=== PATIENT | female | born 1975 | race Caucasian/White ===

== ENCOUNTER 2018-04-13 09:44 | Day surgery (SDC) | payer BC ==
[~2018-04-13 09:44] MED LIST: Buffered Lidocaine 0.9% SYRIN* 5 ML/SYR SYRINGE INTRADERM ONE; Dexamethasone IV* 4 MG/ML 1 ML (4 MG) IV SLOW PU ONE; Famotidine IV* 10 MG/ML 2 ML (20 mg) IV ONE
[2018-04-13] MEDS ORDERED: Famotidine IV* 10 MG/ML 2 ML (20 mg) ONE (09:57)
[2018-04-13] MEDS ORDERED: Dexamethasone IV* 4 MG/ML 1 ML (4 MG) ONE (09:57)
[2018-04-13] MEDS ORDERED: ceFAZolin 2 GM in NS PREMIX(*) 2 GM/100 ML BAG IVPB ONE (09:58)
[2018-04-13] MEDS ORDERED: Scopolamine 1.5 mg* PATCH ONE (11:04)
[2018-04-13] MEDS ORDERED: Midazolam* 1 MG/ML 2 ML VIAL (2 MG) ONE (11:11)
[2018-04-13] MEDS ORDERED: fentaNYL* 50 MCG/ML 2 ML VIAL (100 MCG VIAL) ONE ×4 (11:11→14:20)
[2018-04-13] MEDS ORDERED: Scopolamine 1.5 mg* PATCH TRANSDERM SCH (12:00)
[2018-04-13] MEDS ORDERED: ROPIVACAINE 5 MG/ML 30 ML BTL (0.5%) ONE (12:11)
[2018-04-13] MEDS ORDERED: Ondansetron INJ* 2 MG/ML VIAL ONE (12:33)
[2018-04-13] MEDS ORDERED: Lidocaine 2% PF * 5 ML VIAL ONE (12:33)
[2018-04-13] MEDS ORDERED: Propofol* 10 MG/ML 20 ML BTL IV PUSH ONE (12:33)
[2018-04-13] MEDS ORDERED: Ketorolac INJ* 30 MG/ML 1 ML VIAL ONE (12:33)
[2018-04-13] MEDS ORDERED: HYDROmorphone INJ1* 1 MG/ML SYRINGE IV PRN (13:06)
[2018-04-13] MEDS ORDERED: Naloxone* 0.4 MG/ML 1 ML VIAL IV PRN (13:06)
[2018-04-13] MEDS ORDERED: DiMENhydriNATE IV* 50 MG/ML VIAL IV PUSH PRN (13:06)
[2018-04-13] MEDS ORDERED: HYDROcodone/ACETAMIN 5-325 MG* 1 TAB ONE (14:20)
[2018-04-13] MEDS: fentaNYL* 50 MCG/ML 2 ML VIAL (100 MCG VIAL) IV PRN ×2 (14:25→14:42)
[2018-04-13 15:04] VITALS: BP 135/79
--- NOTE | 2018-04-14 01:16 | OP ---
DATE OF OPERATION: 04/13/18 - [facility] DATE OF : 73 SURGEON: Tom Talley MD PROCESS DESIGNER: JAZMYNE Bernard. An mobile unit assistant was needed for the entirety of the procedure to aid in positioning of the arm and retraction. ANESTHESIOLOGIST: Dr. Alston. ANESTHESIA: General. PRE-OP DIAGNOSES: 1. 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 2. 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 3. Right distal radius malunion. POST-OP DIAGNOSES: 1. 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 2. 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 3. Right distal radius malunion. OPERATIVE PROCEDURE: 1. Right ulnar styloid excision with open triangular fibrocartilage complex peripheral repair. 2. Right thumb carpometacarpal arthroplasty with trapeziectomy. 3. Distally based split flexor carpi radialis tendon transfer for thumb suspension and tendon interposition. 4. Right partial trapeziectomy. 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 She has a symptomatic ulnar styloid nonunion and severe STT joint arthritis. We have had many discussions about the best way of addressing this surgically. We had talked about restoring the alignment of the distal radius in an effort to build a more structurally sound wrist. She was not interested in the recovery that goes along with that. Ultimately what bothers her most is ulnar-sided wrist pain in the area of the ulnar styloid nonunion and also the STT joint arthritis. We had talked about the risks and benefits including the risk of wrist instability and need for further surgery. Ultimately we talked about the risk of potential wrist fusion in the future if significant radiocarpal and intercarpal arthritis develops. She understands the risks and benefits. She wants to proceed with surgery. ESTIMATED BLOOD LOSS: 2 mL. COMPLICATIONS: None. FINDINGS: See above and below. DESCRIPTION OF PROCEDURE: Jennifer was seen in the preoperative holding area. The correct site, side and procedure were identified. We came back to the operating room where the arm was prepped and draped in the usual fashion. A time-out was performed. The arm was exsanguinated with Esmarch and the tourniquet inflated to 250 mmHg. I then flexed the elbow and made a longitudinal incision over the ulnar aspect of the wrist joint. Dissection was carried down. The dorsal and the sensory nerve was protected. I came palmar to the extensor carpi radialis subsheath. I made a longitudinal incision through the ulnar collateral ligament. The ulnar styloid nonunion fragment was excised. I then placed 1 mini Mitek suture anchor in the footprint of the ulnar styloid nonunion. This was used to sew into the peripheral aspect of the TFCC and repair the TFCC back down to bone. This provided a very excellent peripheral TFCC repair. I then closed the wrist capsule with 3-0 Ethibond suture and then 4-0 Vicryl suture in layers with buried knots. Skin was closed with 3-0 Monocryl. We then turned our attention to the thumb area. I made a 2 to 3 cm longitudinal incision over the dorsal radial thumb. Dissection was carried down longitudinally preserving the sensory nerves. The radial artery was mobilized and retracted out of the way. I made a longitudinal incision through the capsule of the scaphotrapezoid joint and the carpometacarpal joint. Full thickness flaps were raised subperiosteally off the trapezium. The trapezium was then excised in its entirety with a rongeur. The FCR tendon was preserved in the base of the wound. There was absolutely no cartilage on the distal pole of the scaphoid including the scaphotrapezoid joint. I then took my osteotome and excised the proximal 3 mm of trapezoid. This came out as one nice clean wafer. I then placed axial traction on my second ray and I could not get impingement between the distal pole of the scaphoid and the proximal trapezoid. I went ahead and placed bone wax over the cancellous bed of the proximal trapezoid. I then made a bone tunnel from distal dorsal radial out the volar ulnar aspect of the articular surface of the metacarpal base. Next, I turned my attention to the tendon transfer. I made a 1 cm transverse incision over the distal forearm area over the FCR tendon. The sheath was released. The tendon was brought up into the wound. The tendon was split longitudinally with a 15-blade and then a 26-gauge wire was passed into the tendon split. I then came 7 or 8 cm proximal to that incision. I made a second transverse incision. I released the sheath all along the FCR tendon. I then made a third transverse incision more proximally at the musculotendinous junction. Once the sheath was entirely released, I used a Felicity clamp to pass my wire under the skin, splitting the FCR tendon and releasing it at the musculotendinous junction. I whipstitched the end of the tendon to prevent it from fraying. I then passed my split into the tendon down into my thumb base wound using two 26-gauge wires to shuttle the tendon down into the wound. The tendon split was completed down to the base of the second metacarpal. The tendon was then passed through the bone tunnel back around the intact limb of the FCR. Tension in the tendon transfer was secured with multiple 3-0 Ethibond sutures. The first sewed all three limbs of the tendon transfer together, the last two sewed intact limb to intact limb. The remainder of the tendon tail was made into a mat using 4-0 Vicryl suture. I then put traction on my second ray and the tendon mat was placed as an interposition between the base of the trapezoid and the distal pole of the scaphoid. At this point, everything was looking good. The thumb was in very nice position. I irrigated out the wound. The capsule was closed with 3-0 Ethibond suture. The skin was closed with 4-0 nylon suture. All of the operative areas were infiltrated with a long-acting local anesthetic. Steri-Strips were placed over the ulnar wound. Xeroform was placed over the more radial and volar wounds. The wounds were dressed with 4x4' s, Webril, and then a thumb spica splint was applied, holding the thumb in abduction. Tourniquet was deflated. The hand pinked up immediately. She was then woken up and taken to the recovery room in stable condition. [id number]/[facility] #: [id number] DILLAN
== END 2018-04-13 15:20 | disposition home or self-care (01) ==
LOC: OREAST 09:44
PROVIDERS: ATTEND Orthopaedic Surgery Hand Surgery
DX: M19.131 Post-traumatic osteoarthritis, right wrist (principal); S52.591P Other fractures of lower end of right radius, subsequent encounter for closed fracture with malunion; S52.614K Nondisplaced fracture of right ulna styloid process, subsequent encounter for closed fracture with nonunion; S63.591D Other specified sprain of right wrist, subsequent encounter; X58.XXXD Exposure to other specified factors, subsequent encounter; Y92.9 Unspecified place or not applicable; Z72.0 Tobacco use; Z68.31 Body mass index [BMI] 31.0-31.9, adult
CPT/HCPCS: 81025; 88304; 88311; A9270-GY; C1713; J0690; J1100; J1885; J2250; J2405; J2704; J2795; J3010